=== PATIENT | female | born 1985 | race Hispanic/Latino ===

== ENCOUNTER 2018-11-02 12:11 | Emergency (ER) | payer BC, OTHER ==
[2018-11-02 13:38] LABS: Urine Blood TRACE (NEG); Urine Glucose NEGATIVE (NEG); Urine Protein NEGATIVE (NEG)
[2018-11-02] MEDS ORDERED: ONDANSETRON 4 MG/2 ML VIAL ONE (13:48)
[2018-11-02] MEDS ORDERED: NA CHLORIDE 0.9% 1,000 ML ONE (13:48)
[2018-11-02] MEDS ORDERED: MORPHINE 4 MG/ML SYR ONE ×2 (13:48→16:55)
[2018-11-02 14:05] LABS: Absolute Lymphocytes (CBC) 1.4 K/uL (0.7-4.9); Absolute Monocytes 0.7 K/uL (0.1-1.3); Absolute Neutrophil 9.8 K/uL (1.8-8.0); Basophils % 0.5 % (0-1.3); Eosinophils % 0.7 % (0-4.4); Hematocrit 36.8 % (36.0-45.0); Lymphocytes % 11.4 % (15.3-44.8); MPV 8.5 fL (7.6-11.3); Monocytes % 5.8 % (3.3-12.3); RBC Red Blood Cell Count 4.01 M/uL (3.86-4.86)
[2018-11-02 14:11] LABS: ALT/SGPT 21 U/L (12-78); AST/SGOT 13 U/L (15-37); Albumin 3.8 g/dL (3.4-5.0); Alkaline Phosphatase 54 U/L (45-117); BUN Blood Urea Nitrogen 5 mg/dL (7-18); Bicarbonate 27 mmol/L (21-32); Bilirubin Direct 0.2 mg/dL (0-0.2); Bilirubin Total 0.6 mg/dL (0.2-1.0); Glucose Level 97 mg/dL (74-106); Lipase 101 U/L (73-393); Potassium 3.4 mmol/L (3.5-5.1); Protein, Total 7.8 g/dL (6.4-8.2); Sodium Level 139 mmol/L (136-145)
--- NOTE | 2018-11-02 14:43 | RAD REPORT ---
EXAM DESCRIPTION: CTAbdomen Pelvis W Contrast - 11/02/2018 2:34 pm CLINICAL HISTORY: Abdominal pain. IV ONLY, abdominal pain, bloody stools COMPARISON: No comparisons TECHNIQUE: Biphasic CT imaging of the abdomen and pelvis was performed with 100 ml non-ionic IV cont rast. All CT scans are performed using dose optimization technique as appropriate and may include automated exposure control or mA/KV adjustment according to patient size. FINDINGS: The lung bases are clear. The liver contains an 8 mm hypodensity in the left lobe, likely benign. The spleen, pancreas, adrenal glands and kidneys are within normal limits. No bowel obstruction, free air, intra-abdominal free fluid or abscess. Moderately severe inflammatory wall thickening and edema is seen involving the ascending colon. No pneumatosis coli seen. Small johanna unt of free fluid is seen in the pelvis. The appendix is normal. No evidence of significant lymphade nopathy. No suspicious bony findings. IMPRESSION: Moderately severe ascending colitis.
[2018-11-02] MEDS ORDERED: Levofloxacin 750mg IV 750 MG/150 ML BAG IV ONE (15:09)
[2018-11-02] MEDS ORDERED: METRONIDAZOLE 500mg IVPB 500 MG/100 ML BAG IV ONE (15:09)
--- NOTE | 2018-11-02 17:52 | EDPHYS ---
Physician Documentation [facility] Name: Jaz Saeed Age: 33 yrs Sex: Female : 1985 Arrival Date: 11/02/2018 Time: 12:16 Bed 5 Private MD: ED Physician Navarro Martinez HPI: 11/02 13:26 This 33 yrs old Female presents to ER via Ambulatory with complaints of Bloody jmm Stools, Abdominal Cramping. 13:26 The patient presents with abdominal pain. jmm 13:26 Onset: The symptoms/episode began/occurred gradually, 1 day(s) ago. jmm 13:26 The symptoms do not radiate. Associated signs and symptoms: Pertinent positives: blood jmm in stools. This is a 33 year old female with no chronic medical conditions that presents to the ED with complaints of abdominal pain, a blood in her stools beginning approx 1 day ago. Patient states she recently returned on a trip from [place]. Denies recent antibiotics use. 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 - Social history:: Smoking status: Patient/guardian denies using tobacco. - Ebola Screening: : No symptoms or risks identified at this time Patient reports travel to an Ebola-affected area in the 21 days before illness onset. Patient reports to have traveled to [place] from Sunday the to Sunday the . ROS: 13:26 Constitutional: Negative for fever, chills, and weight loss, Cardiovascular: Negative jmm for chest pain, palpitations, and edema, Respiratory: Negative for shortness of breath, cough, wheezing, and pleuritic chest pain. 13:26 Abdomen/GI: Positive for abdominal pain, diarrhea, rectal bleeding. 13:26 All other systems are negative. Exam: 13:26 Constitutional: This is a well developed, well nourished patient who is awake, alert, jmm and in no acute distress. Head/Face: atraumatic. Eyes: EOMI, no conjunctival erythema appreciated ENT: Moist Mucus Membranes Neck: Trachea midline, Supple Chest/axilla: Normal chest wall appearance and motion. Cardiovascular: Regular rate and rhythm. No edema appreciated Respiratory: Normal respirations, no respiratory distress appreciated 13:26 Neuro: Awake and alert, normal gait 13:26 Abdomen/GI: Inspection: abdomen appears normal, Bowel sounds: normal, Palpation: soft, moderate abdominal tenderness, in the right upper quadrant and right lower quadrant. 13:26 Back: ROM is normal. 13:26 Musculoskeletal/extremity: ROM: intact in all extremities. 13:26 Skin: Appearance: Color: normal in color. 13:26 Psych: Behavior/mood is pleasant, cooperative. Vital Signs: 12:29 BP 120 / 82; Pulse 102; Resp 18 S; Temp 98.7(TE); Pulse Ox 99% on R/A; Weight 48.08 kg aa5 (R); Height 5 ft. 1 in. (154.94 cm) (R); Pain 8/10; 13:21 BP 121 / 78; Pulse 95; Resp 14; Pulse Ox 100% on R/A; Pain 3/10; pc1 16:00 BP 107 / 75; Pulse 77; Resp 18; Pulse Ox 100% on R/A; pc1 17:57 BP 110 / 76; Pulse 72; Resp 18; Pulse Ox 100% on R/A; hj 12:29 Body Mass Index 20.03 (48.08 kg, 154.94 cm) aa5 MDM: 13:26 Patient medically screened. [facility] 17:50 Data reviewed: vital signs, nurses notes. Counseling: I had a detailed discussion with bonita the patient and/or guardian regarding: the historical points, exam findings, and any diagnostic results supporting the discharge/admit diagnosis, lab results, radiology results, the need for outpatient follow up, to return to the emergency department if symptoms worsen or persist or if there are any questions or concerns that arise at home. ED course: Patient advised to follow up with gi or pcp for reevaluation. patient is given strict return precautions. patient understood and agrees with the plan of care. . 11/02 13:30 Order name: Basic Metabolic Panel; Complete Time: 14:20 [facility] 11/02 13:30 Order name: CBC with Diff; Complete Time: 14:20 [facility] 11/02 13:30 Order name: Creatinine for Radiology; Complete Time: 14:20 [facility] 11/02 13:30 Order name: Hepatic Function; Complete Time: 14:20 [facility] 11/02 13:30 Order name: Lipase; Complete Time: 14:20 [facility] 11/02 13:34 Order name: Urine Dipstick--Ancillary (enter results); Complete Time: 13:44 11/02 13:30 Order name: CT Abd/Pelvis - W/Contrast; Complete Time: 14:49 [facility] 11/02 13:34 Order name: Urine --Ancillary (enter results); Complete Time: 13:44 11/02 13:30 Order name: IV Saline Lock; Complete Time: 13:47 [facility] 11/02 13:30 Order name: Labs collected and sent; Complete Time: 13:58 [facility] Administered Medications: 13:40 Drug: NS 0.9% 1000 ml Route: IV; Rate: 1 bolus; Site: right antecubital; hj 15:30 Follow up: IV Status: Completed infusion hj 13:40 Drug: morphine 2 mg Route: IVP; Site: right antecubital; hj 15:00 Follow up: Response: No adverse reaction hj 13:40 Drug: Zofran 4 mg Route: IVP; Site: right antecubital; hj 15:00 Follow up: Response: No adverse reaction; Pain is decreased hj 14:53 Drug: Flagyl 500 mg Volume: 100 ml; Route: IVPB; Rate: 200 ml/hr; Infused Over: 30 hj mins; Site: right antecubital; 16:00 Follow up: IV Status: Completed infusion hj 15:35 Drug: LevaQUIN 750 mg Volume: 150 ml; Route: IVPB; Infused Over: 90 mins; Site: right hj antecubital; 16:10 Follow up: IV Status: Completed infusion hj 16:41 Drug: morphine 2 mg Route: IVP; Site: right antecubital; hj 16:46 Follow up: Response: No adverse reaction; Pain is decreased hj Disposition: 11/03 09:44 Co-signature as Attending Physician, Navarro Martinez MD. rn Disposition: 11/02/18 17:51 Discharged to Home. Impression: Colitis. - Condition is Stable. - Discharge Instructions: Colitis. - Prescriptions for Flagyl 500 mg Oral Tablet - take 1 tablet by ORAL route every 8 hours for 10 days; 30 tablet. Levaquin 750 mg Oral Tablet - take 1 tablet by ORAL route once daily for 10 days; 10 tablet. Tylenol- Codeine #3 300-30 mg Oral Tablet - take 1 tablet by ORAL route every 6 hours As needed; 20 tablet. - Medication Reconciliation Form, Thank You Letter, Antibiotic Education, Prescription Opioid Use form. - Follow up: Jose Lopez MD; When: 2 - 3 days; Reason: Recheck today's complaints, Continuance of care, Re-evaluation by your physician. Signatures: Dispatcher [employer] EDMS Lucas Salcido PA PA jmm Nieto, Roman, MD MD rn Mayte Mejia RN RN aa5 Talib Mayer, RN RN Dmitri Pace Corrections: (The following items were deleted from the chart) 11/02 18:00 17:51 11/02/2018 17:51 Discharged to Home. Impression: Colitis. Condition is Stable. hj Forms are Medication Reconciliation Form, Thank You Letter, Antibiotic Education, Prescription Opioid Use. Follow up: Jose Lopez; When: 2 - 3 days; Reason: Recheck today's complaints, Continuance of care, Re-evaluation by your physician. bonita
--- NOTE | 2018-11-02 17:52 | ER ---
Nurse's Notes [facility] Name: Jaz Saeed Age: 33 yrs Sex: Female : 1985 Arrival Date: 11/02/2018 Time: 12:16 Bed 5 Private MD: Diagnosis: Colitis Presentation: 11/02 12:28 Presenting complaint: Patient states: upper abd cramping that radiates to lower abdomen aa5 since yesterday. Pt reports nausea and diarrhea with dark red blood that began yesterday. Pt denies vomiting. Transition of care: patient was not received from another setting of care. Onset of symptoms was October 2018. Risk Assessment: Do you want to hurt yourself or someone else? Patient reports no desire to harm self or others. Initial Sepsis Screen: Does the patient meet any 2 criteria? No. Patient's initial sepsis screen is negative. Does the patient have a suspected source of infection? No. Patient's initial sepsis screen is negative. Care prior to arrival: None. 12:28 Method Of Arrival: Ambulatory aa5 12:28 Acuity: BENNIE 3 aa5 13:24 Care prior to arrival: Medication(s) given: 200mg Ibuprofen at home. pc1 Triage Assessment: 13:14 General: Appears in no apparent distress. uncomfortable, Behavior is calm, cooperative, hj appropriate for age. Pain: Complains of pain in abdomen. GI: Reports lower abdominal pain, upper abdominal pain, bloody stool, nausea, vomiting. 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 - Social history:: Smoking status: Patient/guardian denies using tobacco. - Ebola Screening: : No symptoms or risks identified at this time Patient reports travel to an Ebola-affected area in the 21 days before illness onset. Patient reports to have traveled to [place] from Sunday the to Sunday the . Screenin:14 Abuse screen: Denies threats or abuse. Denies injuries from another. Nutritional hj screening: No deficits noted. Tuberculosis screening: No symptoms or risk factors identified. Fall Risk None identified. Assessment: 13:15 General: Appears in no apparent distress. uncomfortable, Behavior is calm, cooperative, hj appropriate for age. Pain: Complains of pain in abdomen. Neuro: Level of Consciousness is awake, alert, obeys commands, Oriented to person, place, time, situation, Appropriate for age. Cardiovascular: Capillary refill < 3 seconds Patient's skin is warm and dry. Respiratory: Airway is patent Respiratory effort is even, unlabored, Respiratory pattern is regular, symmetrical. GI: Reports lower abdominal pain, upper abdominal pain, bloody stool, nausea, vomiting. : No signs and/or symptoms were reported regarding the genitourinary system. EENT: No signs and/or symptoms were reported regarding the EENT system. Derm: No signs and/or symptoms reported regarding the dermatologic system. Musculoskeletal: No signs and/or symptoms reported regarding the musculoskeletal system. 14:30 Reassessment: Patient and/or family updated on plan of care and expected duration. Pain hj level reassessed. Patient is alert, oriented x 3, equal unlabored respirations, skin warm/dry/pink. awaiting results and POC:. 15:30 Reassessment: Patient and/or family updated on plan of care and expected duration. Pain hj level reassessed. Patient is alert, oriented x 3, equal unlabored respirations, skin warm/dry/pink. Patient states feeling better. 16:48 Reassessment: Patient and/or family updated on plan of care and expected duration. Pain hj level reassessed. Patient is alert, oriented x 3, equal unlabored respirations, skin warm/dry/pink. medicated. Vital Signs: 12:29 BP 120 / 82; Pulse 102; Resp 18 S; Temp 98.7(TE); Pulse Ox 99% on R/A; Weight 48.08 kg aa5 (R); Height 5 ft. 1 in. (154.94 cm) (R); Pain 8/10; 13:21 BP 121 / 78; Pulse 95; Resp 14; Pulse Ox 100% on R/A; Pain 3/10; pc1 16:00 BP 107 / 75; Pulse 77; Resp 18; Pulse Ox 100% on R/A; pc1 17:57 BP 110 / 76; Pulse 72; Resp 18; Pulse Ox 100% on R/A; hj 12:29 Body Mass Index 20.03 (48.08 kg, 154.94 cm) aa5 ED Course: 12:16 Patient arrived in ED. mr 12:28 Arm band placed on. aa5 12:29 Triage completed. aa 13:12 Talib Mayer, RN is Primary Nurse. hj 13:15 Patient has correct armband on for positive identification. Placed in gown. Bed in low hj position. Call light in reach. Side rails up X 1. Adult w/ patient. 13:17 Lucas Salcido PA is PHCP. [facility] 13:17 Navarro Martinez MD is Attending Physician. [facility] 13:40 Initial lab(s) drawn, by dc, sent to lab. Inserted saline lock: 22 gauge in right hj antecubital area, using aseptic technique. Blood collected. 14:33 CT completed. Patient tolerated procedure well. Patient moved back from CT. bq 14:34 CT Abd/Pelvis - W/Contrast In Process Unspecified. EDMS 17:51 Jose Lopez MD is Referral Physician. [facility] 17:56 No provider procedures requiring assistance completed. IV discontinued, intact, hj bleeding controlled, No redness/swelling at site. Pressure dressing applied. Administered Medications: 13:40 Drug: NS 0.9% 1000 ml Route: IV; Rate: 1 bolus; Site: right antecubital; hj 15:30 Follow up: IV Status: Completed infusion hj 13:40 Drug: morphine 2 mg Route: IVP; Site: right antecubital; hj 15:00 Follow up: Response: No adverse reaction hj 13:40 Drug: Zofran 4 mg Route: IVP; Site: right antecubital; hj 15:00 Follow up: Response: No adverse reaction; Pain is decreased hj 14:53 Drug: Flagyl 500 mg Volume: 100 ml; Route: IVPB; Rate: 200 ml/hr; Infused Over: 30 hj mins; Site: right antecubital; 16:00 Follow up: IV Status: Completed infusion hj 15:35 Drug: LevaQUIN 750 mg Volume: 150 ml; Route: IVPB; Infused Over: 90 mins; Site: right hj antecubital; 16:10 Follow up: IV Status: Completed infusion hj 16:41 Drug: morphine 2 mg Route: IVP; Site: right antecubital; hj 16:46 Follow up: Response: No adverse reaction; Pain is decreased Outcome: 17:51 Discharge ordered by . bonita 17:56 Discharged to home ambulatory, with family. vicki 17:56 Condition: stable 17:56 Discharge instructions given to patient, family, Instructed on discharge instructions, follow up and referral plans. medication usage, Demonstrated understanding of instructions, follow-up care, medications, Prescriptions given X 2. 18:00 Patient left the ED. vicki Signatures: Dispatcher [employer] EDMS Lucas Salcido PA PA jmm Rivera, Mary mr NaraanthonyPrema Audri, RN RN aa5 Talib Mayer RN RN Dmitri Pace pc1
== END 2018-11-02 18:00 | disposition home or self-care (01) ==
LOC: ER 12:11
DX: K52.9 Noninfective gastroenteritis and colitis, unspecified (principal)
CPT/HCPCS: 36415; 74177; 80048; 80076; 81003; 81025; 83690; 85025; 96361; 96365; 96375; 99284; J2405; J7030; Q9967

== ENCOUNTER 2018-11-03 21:22 | Observation (INO) | payer OTHER ==
[2018-11-03 23:01] LABS: Urine Blood TRACE (NEG); Urine Glucose NEGATIVE (NEG); Urine Protein 1+ (NEG); Urine Specific Gravity >1.030 (1.005-1.030); Urine pH 5.5 (5.0-7.0)
[2018-11-03] MEDS ORDERED: NA CHLORIDE 0.9% 1,000 ML ONE ×2 (23:01→23:42)
[2018-11-03 23:07] LABS: Absolute Lymphocytes (CBC) 0.7 K/uL (0.7-4.9); Absolute Monocytes 0.3 K/uL (0.1-1.3); Absolute Neutrophil 9.1 K/uL (1.8-8.0); Basophils % 0.4 % (0-1.3); Eosinophils % 0.2 % (0-4.4); Hematocrit 41.2 % (36.0-45.0); Lymphocytes % 7.1 % (15.3-44.8); MPV 8.3 fL (7.6-11.3); Monocytes % 2.9 % (3.3-12.3)
[2018-11-03] MEDS ORDERED: PROMETHAZINE 25 MG/ML VIAL ONE (23:11)
[2018-11-03] MEDS ORDERED: MORPHINE 2 MG/ML SYR ONE (23:12)
[2018-11-03 23:20] LABS: ALT/SGPT 20 U/L (12-78); AST/SGOT 12 U/L (15-37); Albumin 4.1 g/dL (3.4-5.0); Alkaline Phosphatase 55 U/L (45-117); BUN Blood Urea Nitrogen 6 mg/dL (7-18); Bicarbonate 26 mmol/L (21-32); Bilirubin Direct 0.1 mg/dL (0-0.2); Bilirubin Total 0.5 mg/dL (0.2-1.0); Glucose Level 108 mg/dL (74-106); Lipase 100 U/L (73-393); Potassium 3.3 mmol/L (3.5-5.1); Protein, Total 8.3 g/dL (6.4-8.2); Sodium Level 139 mmol/L (136-145)
--- NOTE | 2018-11-03 23:26 | ER ---
Nurse's Notes [facility] Name: Jaz Saeed Age: 33 yrs Sex: Female : 1985 Arrival Date: 11/03/2018 Time: 21:40 Bed 28 Private MD: Diagnosis: Left sided colitis with complications-failed outpt therapy;Dehydration Presentation: 11/03 22:06 Presenting complaint: Patient states: was seen here yesterday and diagnosed with bb Colitis but today is vomiting and can't keep anything down, still having abdominal pain. Transition of care: patient was not received from another setting of care. Onset of symptoms was November 01, 2018. Risk Assessment: Do you want to hurt yourself or someone else? Patient reports no desire to harm self or others. Initial Sepsis Screen: Does the patient meet any 2 criteria? No. Patient's initial sepsis screen is negative. Does the patient have a suspected source of infection? No. Patient's initial sepsis screen is negative. Care prior to arrival: None. 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 - Social history:: Smoking status: Patient/guardian denies using tobacco. - Ebola Screening: : No symptoms or risks identified at this time. Screenin:39 Abuse screen: Denies threats or abuse. Nutritional screening: No deficits noted. la1 Tuberculosis screening: No symptoms or risk factors identified. Fall Risk None identified. Assessment: 22:38 General: Appears in no apparent distress. Behavior is calm, cooperative. Pain: la1 Complains of pain in right upper quadrant, left upper quadrant, right lower quadrant and left lower quadrant. Neuro: Level of Consciousness is awake, alert, obeys commands, Oriented to person, place, time, situation. Cardiovascular: Capillary refill < 3 seconds Patient's skin is warm and dry. Respiratory: Airway is patent Respiratory effort is even, unlabored, Respiratory pattern is regular, symmetrical, Breath sounds are clear bilaterally. GI: Abdomen is round non-distended, Bowel sounds present X 4 quads. Abd is soft X 4 quads Reports diarrhea, nausea, vomiting. : No signs and/or symptoms were reported regarding the genitourinary system. Vital Signs: 22:08 BP 113 / 76; Pulse 98; Resp 16 S; Temp 98.2(O); Pulse Ox 99% on R/A; Weight 48.08 kg bb (R); Height 5 ft. 1 in. (154.94 cm) (R); Pain 4/10; 23:38 BP 104 / 77; Pulse 87; Resp 18; Pulse Ox 98% on R/A; la1 11/04 00:56 BP 105 / 71; Pulse 85; Resp 18; Pulse Ox 98% on R/A; la1 11/03 22:08 Body Mass Index 20.03 (48.08 kg, 154.94 cm) bb ED Course: 11/03 21:40 Patient arrived in ED. am2 22:05 Payton Rosen FNP-C [facility] snw 22:05 Ty Cortez MD is Attending Physician. snw 22:08 Triage completed. bb 22:08 Arm band placed on Patient placed in waiting room, Patient notified of wait time. bb Family accompanied patient. 22:29 Brian Levine, RN is Primary Nurse. la1 22:30 Placed in gown. Bed in low position. Call light in reach. Side rails up X 1. Side rails jp3 up X2. Warm blanket given. Pillow given. 22:30 Pulse ox on. NIBP on. jp3 22:30 Urine collected: clean catch specimen, clear, torrie colored, Amount Voided: 100mL. jp3 22:45 Initial lab(s) drawn, by me, sent to lab. Inserted saline lock: 22 gauge in left jp3 antecubital area, using aseptic technique. Blood collected. 22:45 First set of blood cultures drawn via 22-gauge IV in LAC. jp3 23:00 Second set of blood cultures drawn via 21-gauge butterfly needle in RAC. jp3 23:24 Hernandez Vidal MD is Hospitalizing Provider. snw 11/04 01:32 No provider procedures requiring assistance completed. Patient admitted, IV remains in la1 place. Administered Medications: 11/03 22:54 Drug: NS 0.9% 1000 ml Route: IV; Rate: 1 bolus; Site: left antecubital; la1 23:37 Follow up: IV Status: Completed infusion la1 11/04 00:57 Follow up: IV Status: Completed infusion la1 11/03 23:00 CANCELLED (no fentanyl in hosp): fentaNYL (PF) 25 mcg IVP once snw 23:14 Drug: Phenergan 12.5 mg Route: IVP; Site: left antecubital; la1 23:38 Follow up: Response: No adverse reaction la1 23:14 Drug: morphine 2 mg Route: IVP; Site: left antecubital; la1 11/04 00:57 Follow up: Response: No adverse reaction; Pain is decreased la1 11/03 23:37 Drug: Cipro 400 mg Volume: 200 ml; Route: IVPB; Infused Over: 60 mins; Site: left la1 antecubital; 11/04 00:56 Follow up: IV Status: Completed infusion la1 01:08 Drug: Zofran 4 mg Route: IVP; Site: left antecubital; la1 01:09 Follow up: Response: No adverse reaction la1 Outcome: 11/03 23:25 Decision to Hospitalize by Provider. snw 11/04 01:32 Admitted to Tele accompanied by nurse, via wheelchair, room 417. la1 Condition: stable Instructed on the need for admit. 01:32 Patient left the ED. la1 Signatures: Payton Rosen, RADIO EQUIPMENT INSTALLER-C RADIO EQUIPMENT INSTALLER-Csnw Carley Lockhart RN RN bb Attema, Lee, RN RN la1 Latricia Ballard Jacob jp3
--- NOTE | 2018-11-03 23:26 | EDPHYS ---
Physician Documentation [facility] Name: Jaz Saeed Age: 33 yrs Sex: Female : 1985 Arrival Date: 11/03/2018 Time: 21:40 Bed 28 Private MD: ED Physician Ty Cortez HPI: 11/03 22:47 This 33 yrs old Female presents to ER via Ambulatory with complaints of snw Abdominal Pain, Nausea/Vomiting. 22:47 The patient presents with abdominal pain that is diffuse. Associated signs and snw symptoms: Pertinent positives: diarrhea, vomiting. The symptoms are described as constant. Modifying factors: The symptoms are alleviated by nothing. Severity of pain: At its worst the pain was moderate. The patient has experienced a previous episode. The patient has been recently seen by a physician: The patient has been recently seen at the [facility] Emergency Department, yesterday, for similar complaints pt took her medications this am and this evening but began vomiting. + continued continuous pain. 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 - Social history:: Smoking status: Patient/guardian denies using tobacco. - Ebola Screening: : No symptoms or risks identified at this time. ROS: 22:46 Eyes: Negative for injury, pain, redness, and discharge, ENT: Negative for injury, snw pain, and discharge, Neck: Negative for injury, pain, and swelling, Cardiovascular: Negative for chest pain, palpitations, and edema, Respiratory: Negative for shortness of breath, cough, wheezing, and pleuritic chest pain. 22:46 Back: Negative for injury and pain, : Negative for injury, bleeding, discharge, and swelling, MS/Extremity: Negative for injury and deformity, Skin: Negative for injury, rash, and discoloration, Neuro: Negative for headache, weakness, numbness, tingling, and seizure. 22:46 Constitutional: Positive for body aches, fatigue, malaise, poor PO intake. 22:46 Abdomen/GI: Positive for abdominal pain, nausea, vomiting, and diarrhea. Exam: 22:45 Constitutional: This is a well developed, thin patient who is awake, alert, and in snw mild acute distress. Head/Face: Normocephalic, atraumatic. Eyes: Pupils equal round and reactive to light, extra-ocular motions intact. Lids and lashes normal. Conjunctiva and sclera are non-icteric and not injected. Cornea within normal limits. Periorbital areas with no swelling, redness, or edema. ENT: Nares patent. No nasal discharge, no septal abnormalities noted. Tympanic membranes are normal and external auditory canals are clear. Oropharynx with no redness, swelling, or masses, exudates, or evidence of obstruction, uvula midline. Mucous membranes moist. Neck: Trachea midline, no thyromegaly or masses palpated, and no cervical lymphadenopathy. Supple, full range of motion without nuchal rigidity, or vertebral point tenderness. No Meningismus. Chest/axilla: Normal chest wall appearance and motion. Nontender with no deformity. No lesions are appreciated. Cardiovascular: Regular rate and rhythm with a normal S1 and S2. No gallops, murmurs, or rubs. Normal PMI, no JVD. No pulse deficits. Respiratory: Lungs have equal breath sounds bilaterally, clear to auscultation and percussion. No rales, rhonchi or wheezes noted. No increased work of breathing, no retractions or nasal flaring. Back: No spinal tenderness. No costovertebral tenderness. Full range of motion. Skin: Warm, dry with normal turgor. Normal color with no rashes, no lesions, and no evidence of cellulitis. MS/ Extremity: Pulses equal, no cyanosis. Neurovascular intact. Full, normal range of motion. Neuro: Awake and alert, GCS 15, oriented to person, place, time, and situation. Cranial nerves II-XII grossly intact. Motor strength 5/5 in all extremities. Sensory grossly intact. Cerebellar exam normal. Normal gait. Psych: Awake, alert, with orientation to person, place and time. Behavior, mood, and affect are within normal limits. 22:45 Abdomen/GI: Inspection: scaphoid, Bowel sounds: active, Palpation: moderate abdominal tenderness, in all quadrants. Vital Signs: 22:08 BP 113 / 76; Pulse 98; Resp 16 S; Temp 98.2(O); Pulse Ox 99% on R/A; Weight 48.08 kg bb (R); Height 5 ft. 1 in. (154.94 cm) (R); Pain 4/10; 23:38 BP 104 / 77; Pulse 87; Resp 18; Pulse Ox 98% on R/A; la1 11/04 00:56 BP 105 / 71; Pulse 85; Resp 18; Pulse Ox 98% on R/A; la1 11/03 22:08 Body Mass Index 20.03 (48.08 kg, 154.94 cm) bb MDM: 11/03 22:26 Patient medically screened. snw 23:26 Data reviewed: vital signs, nurses notes. Data interpreted: Pulse oximetry: on room air snw is 99 %. Interpretation: normal. Counseling: I had a detailed discussion with the patient and/or guardian regarding: the historical points, exam findings, and any diagnostic results supporting the discharge/admit diagnosis, lab results, radiology results, the need for further work-up and treatment in the hospital. Physician consultation: Hernandez Vidal MD was called at 23:27, was contacted at 23:27, regarding admission, to the telemetry unit. 23:27 ED course: Pt here at [facility] ED yesterday, dx colitis on CT, pt unable to tolerate po snw medications today with dehydration, vomiting, and generalized abdominal pain. 11/03 22:27 Order name: Basic Metabolic Panel; Complete Time: 23:24 snw 11/03 22:27 Order name: CBC with Diff; Complete Time: 01:23 snw 11/03 22:27 Order name: Hepatic Function; Complete Time: 23:24 snw 11/03 22:27 Order name: Lipase; Complete Time: 23:24 snw 11/03 22:27 Order name: Blood Culture Adult (2) w 11/03 22:27 Order name: Test, Serum; Complete Time: 00:54 snw 11/03 22:27 Order name: Urine Culture w 11/03 22:27 Order name: Urine Microscopic Only; Complete Time: 01:23 snw 11/03 22:43 Order name: Urine Dipstick--Ancillary (enter results); Complete Time: 23:04 mw2 11/03 22:43 Order name: Urine --Ancillary (enter results); Complete Time: 23:04 mw2 11/03 23:15 Order name: Manual Differential; Complete Time: 01:23 EDMS 11/03 22:27 Order name: IV Saline Lock; Complete Time: 22:54 snw 11/03 22:27 Order name: Labs collected and sent; Complete Time: 22:54 snw 11/03 22:27 Order name: Urine Dipstick-Ancillary (obtain specimen); Complete Time: 22:41 snw 11/04 00:31 Order name: NPO EDMS Administered Medications: 22:54 Drug: NS 0.9% 1000 ml Route: IV; Rate: 1 bolus; Site: left antecubital; la1 23:37 Follow up: IV Status: Completed infusion la1 11/04 00:57 Follow up: IV Status: Completed infusion la1 11/03 23:00 CANCELLED (no fentanyl in hosp): fentaNYL (PF) 25 mcg IVP once snw 23:14 Drug: Phenergan 12.5 mg Route: IVP; Site: left antecubital; la1 23:38 Follow up: Response: No adverse reaction la1 23:14 Drug: morphine 2 mg Route: IVP; Site: left antecubital; la1 11/04 00:57 Follow up: Response: No adverse reaction; Pain is decreased la1 11/03 23:37 Drug: Cipro 400 mg Volume: 200 ml; Route: IVPB; Infused Over: 60 mins; Site: left la1 antecubital; 11/04 00:56 Follow up: IV Status: Completed infusion la1 01:08 Drug: Zofran 4 mg Route: IVP; Site: left antecubital; la1 01:09 Follow up: Response: No adverse reaction la1 Disposition: 02:59 Co-signature as Attending Physician, Ty Cortez MD. gs Disposition: 11/03/18 23:25 Hospitalization ordered by Hernandez Vidal for Inpatient Admission. Preliminary diagnosis are Left sided colitis with complications - failed outpt therapy, Dehydration. - Bed requested for Telemetry/MedSurg (Inpatient). - Status is Inpatient Admission. la1 - Condition is Stable. - Problem is an acute exacerbation. - Symptoms have worsened. UTI on Admission? No Signatures: Dispatcher [employer] EDMS Payton Rosen, DAVID-C INFO PRINT PRESS OPERATOR-Csnw Carley Lockhart, LUIS RN bb Brian Levine RN RN la1 Ty Cortez MD MD gs Tran, Leah lt1 Corrections: (The following items were deleted from the chart) 11/03 23:00 22:57 fentaNYL (PF) 25 mcg IVP once ordered. snw sn 11/04 00:40 11/03 23:25 Hospitalization Ordered by Hernandez Vidal MD for Inpatient Admission. lt1 Preliminary diagnosis is Left sided colitis with complications - failed outpt therapy; Dehydration. Bed requested for Telemetry/MedSurg (Inpatient). Status is Inpatient Admission. Condition is Stable. Problem is an acute exacerbation. Symptoms have worsened. UTI on Admission? No. [facility] 11/04 01:32 00:40 11/03/2018 23:25 Hospitalization Ordered by Hernandez Vidal MD for Inpatient la1 Admission. Preliminary diagnosis is Left sided colitis with complications - failed outpt therapy; Dehydration. Bed requested for Telemetry/MedSurg (Inpatient). Status is Inpatient Admission. Condition is Stable. Problem is an acute exacerbation. Symptoms have worsened. UTI on Admission? No. lt1
[2018-11-03] MEDS ORDERED: CIPROFLOXACIN 400mg IV 400 MG/200 ML BAG IV ONE (23:39)
[2018-11-04] MEDS ORDERED: ONDANSETRON 4 MG/2 ML VIAL IV PRN (00:27)
[2018-11-04] MEDS ORDERED: ALPRAZOLAM 0.25 MG TABLET PO PRN (00:27)
[2018-11-04] MEDS ORDERED: ACETAMINOPHEN 500 MG TAB PO PRN (00:27)
[2018-11-04] MEDS ORDERED: Levofloxacin500mg IV 500 MG/100 ML BAG IV SCH (01:00)
[2018-11-04 01:13] LABS: Blood Morphology Comment NOT SEEN (NOT SEEN); Platelet Estimate ADEQ
[2018-11-04] MEDS ORDERED: ONDANSETRON 4 MG/2 ML VIAL ONE (01:17)
[2018-11-04 01:20] LABS: Calcium Oxalate Crystals- Ur MODERATE (NONE SEEN); Urine Bacteria <20 /HPF (<20); Urine Culture Reflex Order NOT NEEDED; Urine Mucus 3+ /HPF (NONE SEEN); Urine RBC <5 /HPF (NONE SEEN)
[2018-11-04] MEDS: NA CHLORIDE 0.9% 1,000 ML IV SCH ×3 (02:15→20:21)
[2018-11-04] MEDS: METRONIDAZOLE 500mg IVPB 500 MG/100 ML BAG IV SCH ×3 (05:26→18:10)
--- NOTE | 2018-11-04 07:14 | P.HP ---
Certification for Inpatient Patient admitted to: Observation With expected LOS: <2 Midnights Patient will require the following post-hospital care: None Practitioner: I am a practitioner with admitting privileges, knowledge of patient current condition, hospital course, and medical plan of care. Services: Services provided to patient in accordance with Admission requirements found in Title 42 Section 412.3 of the Code of Federal Regulations Patient History Date of Service: 11/04/18 Reason for admission: Abdominal pain/persistent diarrhea/ketosis History of Present Illness: Patient is a 33-year-old female came into the hospital with abdominal pain and severe dehydration Patient's workup revealed she was very ketotic. She had a sore throat a few weeks ago, and she was placed on antibiotics. She went to [place] a week ago, and then a couple of days ago she started having diarrhea. Will do stool studies, and we will do a hepatitis profile. She will need admission for observation. Allergies No Known Drug Allergies Allergy (Verified 11/04/18 02:04) Unknown Home Medications: Levonorgestrel-Ethin Estradiol [Lillow-28 Tablet] 1 tab PO DAILY 11/04/18 - Past Medical/Surgical History Has patient received pneumonia vaccine in the past: No Diabetic: No Past Medical History: Patient denies medical history Past Surgical History: Patient denies surgical history - Family History Father Notes: father has no medical condition Mother History Unknown: Yes - Social History Smoking Status: Never smoker Alcohol use: No CD- Drugs: No Caffeine use: Yes Place of Residence: Home Review of Systems 10-point ROS is otherwise unremarkable Physical Examination - Vital Signs Temperature: 97.8 F Blood Pressure: 110/68 Pulse: 73 Respirations: 14 Pulse Ox (%): 99 - Physical Exam General: Alert, In no apparent distress, Oriented x3 HEENT: Atraumatic, PERRLA, Mucous membr. moist/pink, EOMI, Sclerae nonicteric Neck: Supple, 2+ carotid pulse no bruit, No LAD, Without JVD or thyroid abnormality Respiratory: Clear to auscultation bilaterally, Normal air movement Cardiovascular: Regular rate/rhythm, Normal S1 S2, No murmurs Gastrointestinal: Normal bowel sounds, Soft and benign, Non-distended, No rebound, No guarding, Tenderness Musculoskeletal: No clubbing, No swelling, No tenderness Integumentary: No rashes Neurological: Normal speech, Normal tone, Sensation intact, Cranial nerves 3-12 intact, Normal affect, Abnormal gait, Abnormal strength Lymphatics: No axilla or inguinal lymphadenopathy - Studies Laboratory Data (last 24 hrs) 11/03/18 22:45: WBC 10.2 D, Hgb 14.1, Hct 41.2, Plt Count 368 11/03/18 22:45: Sodium 139, Potassium 3.3 L, BUN 6 L, Creatinine 0.69, Glucose 108 H, Total Bilirubin 0.5, AST 12 L, ALT 20, Alkaline Phosphatase 55, Lipase 100 Assessment & Plan - Problems (Diagnosis) (1) Colitis Current Visit: Yes Status: Acute (2) Diarrhea Current Visit: Yes Status: Acute (3) Abdominal pain Current Visit: Yes Status: Acute - Plan 1. Continue with IV hydration 2. Continue with IV antibiotics 3. Continue with pain control 4. NPO 5. GI consultation; outpatient colonoscopy in 6-12 weeks 6. Serial H&H, and we will monitor CBC, BMP, LFTs and lipase along with electrolytes. 7. GI and DVT prophylaxis Discharge Plan: Home Plan to discharge in: 48 Hours - Advance Directives Does patient have a Living Will: No Does patient have a Durable POA for Healthcare: No - Code Status/Comfort Care Code Status Assessed: Yes Code Status: Full Code Critical Care: No Time Spent Managing PTS Care (In Minutes): 45
[2018-11-04 08:36] LABS: Absolute Lymphocytes (CBC) 1.6 K/uL (0.7-4.9); Absolute Monocytes 0.5 K/uL (0.1-1.3); Absolute Neutrophil 4.1 K/uL (1.8-8.0); Basophils % 0.6 % (0-1.3); Eosinophils % 1.5 % (0-4.4); Hematocrit 33.8 % (36.0-45.0); Lymphocytes % 25.3 % (15.3-44.8); MPV 8.1 fL (7.6-11.3); Monocytes % 7.8 % (3.3-12.3); RBC Red Blood Cell Count 3.68 M/uL (3.86-4.86)
[2018-11-04 08:50] LABS: BUN Blood Urea Nitrogen 5 mg/dL (7-18); Bicarbonate 25 mmol/L (21-32); Glucose Level 80 mg/dL (74-106); Magnesium 1.7 mg/dL (1.8-2.4); Phosphorus 1.9 mg/dL (2.5-4.9); Potassium 3.4 mmol/L (3.5-5.1); Sodium Level 142 mmol/L (136-145)
[2018-11-04] MEDS: Levofloxacin500mg IV 500 MG/100 ML BAG IV SCH (09:15)
[2018-11-04] MEDS: ENOXAPARIN 40 MG/0.4 ML SQ SCH (09:17)
[2018-11-04 12:28] LABS: Urine Appearance CLEAR; Urine Bilirubin NEGATIVE (NEG); Urine Blood NEGATIVE (NEG); Urine Color YELLOW; Urine Glucose NEGATIVE (NEG); Urine Protein NEGATIVE (NEG); Urine Urobilinogen 0.2 mg/dL (0.2-1.0); Urine pH 6.5 (5.0-7.0)
[2018-11-04] MEDS ORDERED: POTASSIUM CL SA 10 MEQ TAB PO ONE (12:32)
[2018-11-04 12:37] LABS: Urine Microscopic Reflex NO UMIC
[2018-11-05] MEDS: METRONIDAZOLE 500mg IVPB 500 MG/100 ML BAG IV SCH ×3 (00:29→11:18)
[2018-11-05] MEDS: NA CHLORIDE 0.9% 1,000 ML IV SCH ×2 (00:30→06:19)
[2018-11-05] MEDS: Levofloxacin500mg IV 500 MG/100 ML BAG IV SCH (08:17)
[2018-11-05] MEDS: ENOXAPARIN 40 MG/0.4 ML SQ SCH (08:17)
[2018-11-05 11:03] LABS: Absolute Monocytes 0.3 K/uL (0.1-1.3); Absolute Neutrophil 2.5 K/uL (1.8-8.0); Basophils % 0.7 % (0-1.3); Eosinophils % 1.9 % (0-4.4); Hematocrit 37.5 % (36.0-45.0); Lymphocytes % 25.4 % (15.3-44.8); MPV 8.3 fL (7.6-11.3); Monocytes % 8.2 % (3.3-12.3); RBC Red Blood Cell Count 4.07 M/uL (3.86-4.86)
[2018-11-05 11:18] LABS: ALT/SGPT 19 U/L (12-78); AST/SGOT 16 U/L (15-37); Alkaline Phosphatase 40 U/L (45-117); BUN Blood Urea Nitrogen 3 mg/dL (7-18); Bicarbonate 26 mmol/L (21-32); Bilirubin Total 0.4 mg/dL (0.2-1.0); Glucose Level 134 mg/dL (74-106); Potassium 3.6 mmol/L (3.5-5.1); Protein, Total 6.5 g/dL (6.4-8.2); Sodium Level 140 mmol/L (136-145)
--- NOTE | 2018-11-06 05:02 | DS ---
Date of Discharge: 11/05/2018 Discharge Diagnoses: 1. Acute colitis. 2. Diarrhea. 3. Abdominal pain. 4. hepatic lesion Hospital Course: The patient is a 33-year-old female, who was in the ER a couple of days prior to admission, came in with abdominal pain after a trip to [place], having diarrhea. The patient had CT scan of the abdomen done, which showed moderately severe ascending colitis and incidental finding of an 8-mm hypodensity in the left lobe of the liver, probably benign. Hepatitis panel was obtained, however will not result for the next few days. The patient overall did well over the course of the hospital stay. Her UA was equivocal. She did not have any symptoms. Her urine culture showed no growth. Her C. diff assay was negative. Fecal leukocyte stain did show no WBCs. Her stool cultures showed reduced kat. Blood cultures did not show any growth. Her white blood cell count normalized. She tolerated antibiotics well. Her electrolytes were corrected. The patient was then cleared for discharge and was sent home in a stable condition. Activity: As tolerated. Medications: As per medication reconciliation list. Discharge Instructions: Finish up course of Cipro and Flagyl. Return to ER for worsening condition. Establish care with GI in 2-4 weeks. Diet: [place] for the next few days. Physical Examination: General: Awake, alert, and oriented x3. No acute distress. CV: S1, S2. No murmurs. Respiratory: Moving air well bilaterally. No wheezing. Gastrointestinal: Abdomen is soft, nontender, and nondistended. Positive bowel sounds. Extremities: No clubbing, cyanosis, or edema. Neurologic: Nonfocal. SA/MODL Voice ID: [id number] Report ID: [id number] [facility]
[2018-11-06] MEDS ORDERED: LEVONORGESTREL ETHIN ESTRADIOL PO SCH (09:00)
[2018-11-08 05:29] LABS: HBsAG Nonreactive (Nonreactive); Hepatitis A IgM Antibody Nonreactive
== END 2018-11-05 16:20 | disposition home or self-care (01) ==
LOC: ER 21:22 → ERHOLD 11-04 00:27 → 4TH 11-04 01:05
PROVIDERS: ADMIT Hospitalist; ATTEND Hospitalist
DX: K52.9 Noninfective gastroenteritis and colitis, unspecified (principal); K76.9 Liver disease, unspecified
CPT/HCPCS: 36415; 80048; 80053; 80074; 80076; 81003; 81015; 81025; 83690; 83735; 84100; 84703; 85025; 87040; 87045; 87046; 87086; 87088; 87493; 89055; 96361; 96365; 96375; 99285; G0378; J0744; J1650; J2270; J2405; J2550; J7030